=== PATIENT | female | born 1990 | race Caucasian/White ===

== ENCOUNTER 2019-04-11 05:30 | Day surgery (SDC) | payer OTHER ==
[2019-04-08 10:33] LABS: HEMATOCRIT 40.3 % (36.0-47.0); HEMOGLOBIN 13.6 g/dL (12.0-15.5); MEAN CORPUSCULAR HEMOGLOBIN 28.7 pg (27.0-33.4); MEAN CORPUSCULAR HGB CONC 33.7 g/dL (32.0-36.0); MEAN CORPUSCULAR VOLUME 85 fl (80-97); PLATELET COUNT 289 10^3/uL (150-450); RED BLOOD COUNT 4.74 10^6/uL (3.72-5.28); RED CELL DISTRIBUTION WIDTH 12.8 % (11.5-14.0); WHITE BLOOD COUNT 5.7 10^3/uL (4.0-10.5)
[2019-04-08 10:37] LABS: APPEARANCE,URINE CLEAR; BILIRUBIN,URINE NEGATIVE (NEGATIVE); COLOR,URINE STRAW; GLUCOSE, URINE NEGATIVE (NEGATIVE); KETONES,URINE NEGATIVE (NEGATIVE); LEUKOCYTE ESTERASE,URINE NEGATIVE (NEGATIVE); NITRITE,URINE NEGATIVE (NEGATIVE); PROTEIN,URINE NEGATIVE (NEGATIVE); URINE SPECIFIC GRAVITY 1.005; UROBILINOGEN,URINE NEGATIVE mg/dL (<2.0)
[2019-04-08 10:56] LABS: ALKALINE PHOSPHATASE 59 U/L (38-126); ANION GAP 12 (5-19); ASPARTATE AMINO TRANSFERASE 32 U/L (14-36); BILIRUBIN,DIRECT 0.1 mg/dL (0.0-0.4); BILIRUBIN,TOTAL 0.3 mg/dL (0.2-1.3); BLOOD UREA NITROGEN 10 mg/dL (7-20); CALCIUM 10.2 mg/dL (8.4-10.2); CARBON DIOXIDE 29 mmol/L (22-30); CHLORIDE 98 mmol/L (98-107); GLUCOSE 92 mg/dL (75-110); POTASSIUM 4.7 mmol/L (3.6-5.0); TOTAL PROTEIN 7.8 g/dL (6.3-8.2)
[~2019-04-11 05:30] MED LIST: CEFAZOLIN 1 GM/D5W RTU 1 GM/50 ML RTUPB IV ONE; CEFAZOLIN 1 GM/D5W RTU 1 GM/50 ML RTUPB IV PRN; LACTATED RINGERS 1000 ML IV PRN; LIDOCAINE 0.5% INJ-PF (5 MG/ML) 50 ML SDV SUBCUT PRN
[2019-04-11] MEDS ORDERED: FAMOTIDINE INJ/PF 20 MG/2 ML SDV IV ONE (06:28)
[2019-04-11] MEDS ORDERED: SCOPOLAMINE HYDROBROMIDE 1.5 MG PATCH.TD72 ONE (06:28)
[2019-04-11] MEDS ORDERED: MIDAZOLAM 2 MG/2 ML INJ ONE (06:55)
[2019-04-11] MEDS ORDERED: MORPHINE SULFATE 10 MG/ML INJ ONE (06:55)
[2019-04-11] MEDS ORDERED: ONDANSETRON HCL INJ/PF 4 MG/2 ML SDV ONE (06:55)
[2019-04-11] MEDS ORDERED: DEXAMETHASONE SOD PHOSPHATE INJ 4 MG/1 ML VIAL ONE (06:55)
[2019-04-11] MEDS ORDERED: FENTANYL CITRATE INJ/PF 100 MCG/2 ML AMPUL ONE (06:55)
[2019-04-11] MEDS ORDERED: PROPOFOL INJ 200 MG/20 ML VIAL IV ONE (06:55)
[2019-04-11] MEDS ORDERED: BUPIVACAINE HCL 0.25 % INJ/PF (2.5 MG/1 ML) 30 ML VIAL ONE (07:13)
[2019-04-11] MEDS ORDERED: METHYLENE BLUE 50 MG/10 ML AMPULE ONE (07:13)
[2019-04-11] MEDS ORDERED: PROMETHAZINE HCL INJ 25 MG/1 ML VIAL IV PRN ×3 (08:00→08:52)
[2019-04-11] MEDS ORDERED: MORPHINE SULFATE 10 MG/ML INJ IV PRN (08:00)
[2019-04-11] MEDS ORDERED: FENTANYL CITRATE INJ/PF 100 MCG/2 ML AMPUL IV PRN ×3 (08:00)
[2019-04-11] MEDS ORDERED: MEPERIDINE HCL/PF INJ 25 MG/1 ML DISP.SYRIN IV PRN (08:00)
[2019-04-11] MEDS ORDERED: DIPHENHYDRAMINE HCL 50 MG/ML VIAL IV PRN (08:00)
[2019-04-11] MEDS ORDERED: OXYCODONE-ACETAMINOPHEN 5-325 MG TABLET PO PRN ×2 (08:51)
[2019-04-11] MEDS ORDERED: OXYCODONE-ACETAMINOPHEN 5-325 MG TABLET ONE (09:23)
[2019-04-11] MEDS ORDERED: SUCCINYLCHOLINE CHLORIDE INJ 200 MG/10 ML VIAL ONE (12:39)
[2019-04-11 12:53] VITALS: BP 127/90
--- NOTE | 2019-04-11 15:33 | Operative Report ---
Operative Report DATE OF SURGERY: 04/11/19 PREOPERATIVE DIAGNOSIS: Pelvic pain POSTOPERATIVE DIAGNOSIS: Bilateral hydrosalpinx OPERATION: D&C laparoscopy SURGEON: OMAR FUENTES ANESTHESIA: GA TISSUE REMOVED OR ALTERED: Endometrium ESTIMATED BLOOD LOSS: 25 cc INTRAOPERATIVE FINDINGS: Bilateral hydrosalpinx PROCEDURE: Patient was brought into the operating room and placed on the table in a supine position. Patient was then inducted under general anesthesia. Patient was then repositioned in a dorsal lithotomy position. Following a timeout the patient had her bladder drained of sterile urine. A pelvic under anesthesia was then performed. A weighted speculum was then inserted into the vagina and the cervix was grasped on its anterior lip with a single-tooth tenaculum and an Allis clamp. Uterus was sounded to 8 cm. Uterus was dilated with Hegar dilators and then curetted with a small sharp curette. A tenaculum probe was then placed on the anterior lip of the cervix. Attention was then turned toward the abdominal wall. A varies needle was entered inserted through the umbilicus and carried through the various layers until the abdominal cavity was entered. A drop of saline was placed on the varies needle the abdomen was picked up and the saline easily egressed into the abdominal cavity. The varies needle was then hooked up to the CO2. Opening pressure was noted to be 5 cm of water. Approximately 3 L of CO2 were injected until a pressure of 15 cm of water was reached. Having established a pneumoperitoneum the varies needle was removed and a small incision was made infraumbilically. Through this incision a trocar and sleeve were inserted. The trocar was removed and a laparoscope was inserted through the sleeve. A second incision was then made suprapubically. Through this incision a trocar was inserted until the peritoneal cavity was entered. The trocar was then removed and through this sleeve a probe was inserted. The contents of the pelvis and abdominal cavity was then visualized and video recorded with the above findings. Having terminated the procedure the suprapubic sleeve was removed. There was no evidence of active bleeding. The laparoscope was removed. The CO2 was allowed to escape. The subumbilical sleeve was then removed. The defect in the subumbilical fascia were repaired with interrupted using 0 Dexon. The defects in the suprapubic fascia were repaired with 0 Dexon. The skin edges and the subumbilical incision were then closed with a subcuticular using 4-0 Prolene. The skin edges and the suprapubic incision were then closed using interrupted 4-0 Prolene. Attention was then turned down to the vagina and the tenaculum probe was removed. This terminated the procedure the patient was placed back in a supine position and anesthesia was discontinued. Patient was transferred to the recovery room in satisfactory condition.
== END 2019-04-11 10:20 | disposition home or self-care (01) ==
LOC: OROUT 05:30
PROVIDERS: ATTEND Obstetrics & Gynecology
DX: N97.9 Female infertility, unspecified (principal); R10.2 Pelvic and perineal pain; N70.11 Chronic salpingitis
CPT/HCPCS: 36415; 85027; 81025; 80053; 81001; 88305 ×2; 00840; 49320; 58120; J2250; J0690; J1100; J3010; J2270; J0330; J2405; J2704; S0028; Q9968; 840